=== PATIENT | male | born 1965 | race Caucasian/White ===

== ENCOUNTER → 2017-10-25 | Outpatient (CLI) | payer OTHER ==
[~2017-10-25] MED LIST: ASPI81TA28 PO
[2017-10-25 12:49] LABS: INR 2.4 (0.9-1.1)
== END | disposition home or self-care (01) ==
LOC: C.LABSPEC 09:58
PROVIDERS: ATTEND Family Medicine
DX: Z79.01 Long term (current) use of anticoagulants (principal)

== ENCOUNTER 2019-11-01 14:23 | Inpatient (IN) ==
[2019-11-01] MEDS ORDERED: ONDANSETRON INJ 2 MG/ML 2 ML VIAL IV STA (14:32)
[2019-11-01] MEDS ORDERED: SODIUM CHLORIDE 0.9% 1000ML 1,000 ML IV SCH (14:45)
[2019-11-01 14:58] LABS: Basophils # (auto) 0.03 K/uL (0-0.2); Basophils % (auto) 0.4 %; Eosinophils # (auto) 0.09 K/uL (0-0.5); Eosinophils % (auto) 1.1 %; Hematocrit (blood only) 31.2 % (42-52); Hemoglobin 10.3 g/dL (14.0-18.0); Immature Granulocytes # (auto) 0.03 K/uL (0.00-0.02); Immature Granulocytes % (auto) 0.4 %; Lymphocytes # (auto) 2.36 K/uL (1.2-3.4); Lymphocytes % (auto) 29.6 %; Mean Corpuscular Volume 87.9 fL (80-100); Mean Platelet Volume 10.9 fL (7.4-10.4); Monocytes # (auto) 0.44 K/uL (0.11-0.59); Monocytes % (auto) 5.5 %; Neutrophils # (auto) 5.02 K/uL (1.4-6.5); Platelet Count 264 K/uL (130-400); RDW Coefficient of Variation 14.5 % (11.5-14.5); RDW Standard Deviation 46.7 fL (36.4-46.3); Red Blood Count 3.55 M/uL (4.7-6.1); White Blood Count 7.97 K/uL (4.8-10.8)
[2019-11-01 15:16] LABS: Albumin Level 3.3 gm/dl (3.4-5.0); BUN Creatinine Ratio 45.9 (10-20); Calcium 8.3 mg/dl (8.5-10.1); Creatinine Clr Calc Pharmacy 90.6 ml/min; Est GFR (African American) 100.4; Est GFR (Non-African American) 86.6; Potassium 4.6 mmol/L (3.5-5.1)
[2019-11-01 15:18] LABS: Partial Thromboplastin Ratio 2.1; Prothrombin Time > 90.0 Seconds (9.0-12.0)
[2019-11-01 15:19] LABS: Albumin Globulin Ratio 0.9 (0.9-2); Bilirubin,Total 0.1 mg/dl (0.2-1); Globulin 3.5 gm/dl (2.5-4.0); Total Protein 6.8 gm/dl (6.4-8.2)
[2019-11-01] MEDS ORDERED: PANTOprazole 80 MG in DEXTROSE 5% 100 ML IV STA (15:25)
--- NOTE | 2019-11-01 15:26 | Emergency Department Note ---
ED Provider Note NAME: ARSEN [id number] MARGOTH AGE: 54 SEX: M : 1965 ARRIVES VIA: Ambulance INFORMANT: [Patient][, ] ED PROVIDER(S): [Shakir Omer MD] Chief Complaint: Abdominal pain, dark stool HPI: Patient does present from [facility]. The patient has been incarcerated for 20 years. The patient does present with concern for dark stools. These did present with associated abdominal pain beginning 2 days ago. The patient denies any recent trauma. The patient has had some associated nausea but without vomiting. Patient denies any fevers or chills. Nothing is made his symptoms any better or worse at this time. The patient does take Coumadin. He states his last level was checked 2 weeks ago and it was between 2 and 3. ROS: See HPI for pertinent positives and negatives. A total of 10 systems were reviewed and otherwise negative. Past medical history: See below Surgical history: See below Social history: See below Physical Exam: GENERAL: NAD, non-toxic. Wearing glasses. EYE EXAM: Normal conjunctiva. PERRL, no anisocoria and EOM's grossly intact w/o pain. OROPHARYNX: Moist mucus membranes. Grossly normal dentition. NECK: Supple, no nuchal rigidity, no adenopathy, non-tender. No signs of meningismus. LUNGS: Clear to auscultation. Normal chest wall mechanics. HEART: NSR, no MRG. ABDOMEN: Abdomen soft, mild mid abdominal tenderness without peritonitis, normo- active bowel sounds, no masses, no rebound or guarding. BACK: No CVA TTP. SKIN: No rashes and no bruising. UPPER EXTREMITIES: Upper extremities are grossly normal. Left upper extremity is in handcuffs. LOWER EXTREMITIES: Grossly normal, no edema. Both lower extremities in shackles. NEURO EXAM: A&O x3, cranial nerves II-XII grossly intact, normal speech, moves all 4 extremities on command w/o issue. Differential diagnoses: Appendicitis, testicular torsion, infections, diverticu litis, UTI, obstruction, mesenteric ischemia, aortic pathology, inflammatory bowel disease, renal colic, PUD, pancreatitis, biliary pathology, hernia, volvulus, constipation, as well as other pathologies. Course: Patient was seen and evaluated at the bedside. A full history and physical exam was performed. I spoke with E[facility] hospitalist service. Patient will be evaluated for further management and inpatient treatment. EKG: Indication: Tachycardia Normal sinus rhythm, rate of 97, normal intervals, normal axis, single T wave inversion in lead III. No prior EKGs for comparison. Imaging Studies: See below Cardiac monitoring: An order was placed for continuous cardiac monitoring. The monitor shows a rate of 98 with sinus rhythm. MDM: Patient was seen and evaluated at the bedside. The patient did present from present due to concern for dark stool. The patient does take Coumadin for history of DVT. Patient was given IV fluids blood work was obtained. Patient d oes have a hemoglobin of 10. No prior hemoglobins for comparison. Patient does have an elevated BUN to creatinine ratio. This could be concern for an upper GI bleed. The patient is not had any hematemesis. Protonix bolus and drip were ordered. EKG is unremarkable. INR is elevated. The patient does have an elevated BUN to creatinine. The patient was ordered Protonix and IV vitamin K. CT abdomen pelvis is fairly unremarkable. I did speak the on-call hospitalist agreed to further evaluate treat the patient. Patient was admitted to the medicine service. Critical Care: I have personally spent 54 minutes of critical care time in direct management of this patient. This includes bedside care, interpretation of diagnostic studies, and testing, discussion with consultants, patient, and family members, and other require inpatient management activities. This 54 minutes is in excess of all separately billable procedures. Impression & Plan Acute upper gastrointestinal bleeding, Abdominal pain, Supratherapeutic INR, Anemia Past Med/Surg History Medical History DVT (deep venous thrombosis) Hyperlipidemia Surgical History No pertinent past surgical history Social History Preferred Language: Tamazight Communication Ability: Effective marital status: Single Current Living Situation Comment: Incarcerated Feels Safe at Home: Yes Smoking Status: Former smoker Hx Alcohol Use: No Hx Substance Use: No Results & Data Vital Signs Vital Signs - 24 hr 11/01/19 14:26 11/01/19 14:48 Temperature 36.9 C Temperature Source Oral Pulse Rate 116 H Respiratory Rate 20 Respiratory Effort / Characteristics Non-Labored Respiratory Depth Normal Blood Pressure 120/73 Blood Pressure Mean 88 Pulse Oximetry 98 98 Oxygen Delivery Method Room Air Room Air Sepsis Recent Fever Within 48 Hours No Sepsis Action Taken by Nursing No Action Required Home Medications Current Medication List: was personally reviewed by me Laboratory Data Attestation: I reviewed the patient's lab results. Result diagrams: 11/01/19 14:38 11/01/19 14:38 Lab Results 11/01/19 11/01/19 11/01/19 Range/Units 14:38 14:38 14:38 WBC 7.97 (4.8-10.8) K/uL RBC 3.55 L (4.7-6.1) M/uL Hgb 10.3 L (14.0-18.0) g/dL Hct 31.2 L (42-52) % MCV 87.9 (80-100) fL MCH 29.0 (25-34) pg MCHC 33.0 (32-36) g/dL RDW Std Deviation 46.7 H (36.4-46.3) fL RDW Coeff of Danielle 14.5 (11.5-14.5) % Plt Count 264 (130-400) K/uL MPV 10.9 H (7.4-10.4) fL Immature Gran % (Auto) 0.4 % Neut % (Auto) 63.0 % Lymph % (Auto) 29.6 % [place] % (Auto) 5.5 % Eos % (Auto) 1.1 % Baso % (Auto) 0.4 % Immature Gran # (Auto) 0.03 H (0.00-0.02) K/uL Neut # (Auto) 5.02 (1.4-6.5) K/uL Lymph # (Auto) 2.36 (1.2-3.4) K/uL [place] # (Auto) 0.44 (0.11-0.59) K/uL Eos # (Auto) 0.09 (0-0.5) K/uL Baso # (Auto) 0.03 (0-0.2) K/uL PT > 90.0 H (9.0-12.0) Seconds INR > 9.7 H* (0.9-1.1) APTT 58.3 H* (21.0-31.0) Seconds PTT Ratio 2.1 Sodium (136-145) mmol/L Potassium (3.5-5.1) mmol/L Chloride (98-107) mmol/L Carbon Dioxide (21-32) mmol/L Anion Gap (3-11) BUN (7-18) mg/dl Creatinine (0.6-1.4) mg/dl Est Cr Clr Drug Dosing ml/min Est GFR ( Amer) Est GFR (Non-Af Amer) BUN/Creatinine Ratio (10-20) Glucose (70-99) mg/dl Calcium (8.5-10.1) mg/dl Total Bilirubin (0.2-1) mg/dl AST (15-37) U/L ALT (12-78) U/L Alkaline Phosphatase (45-117) U/L Total Protein (6.4-8.2) gm/dl Albumin (3.4-5.0) gm/dl Globulin (2.5-4.0) gm/dl Albumin/Globulin Ratio (0.9-2) Blood Type A Positive Antibody Screen NEGATIVE 11/01/19 Range/Units 14:38 WBC (4.8-10.8) K/uL RBC (4.7-6.1) M/uL Hgb (14.0-18.0) g/dL Hct (42-52) % MCV (80-100) fL MCH (25-34) pg MCHC (32-36) g/dL RDW Std Deviation (36.4-46.3) fL RDW Coeff of Danielle (11.5-14.5) % Plt Count (130-400) K/uL MPV (7.4-10.4) fL Immature Gran % (Auto) % Neut % (Auto) % Lymph % (Auto) % [place] % (Auto) % Eos % (Auto) % Baso % (Auto) % Immature Gran # (Auto) (0.00-0.02) K/uL Neut # (Auto) (1.4-6.5) K/uL Lymph # (Auto) (1.2-3.4) K/uL [place] # (Auto) (0.11-0.59) K/uL Eos # (Auto) (0-0.5) K/uL Baso # (Auto) (0-0.2) K/uL PT (9.0-12.0) Seconds INR (0.9-1.1) APTT (21.0-31.0) Seconds PTT Ratio Sodium 139 (136-145) mmol/L Potassium 4.6 (3.5-5.1) mmol/L Chloride 110 H (98-107) mmol/L Carbon Dioxide 22 (21-32) mmol/L Anion Gap 6.0 (3-11) BUN 45 H (7-18) mg/dl Creatinine 0.99 (0.6-1.4) mg/dl Est Cr Clr Drug Dosing 90.6 ml/min Est GFR ( Amer) 100.4 Est GFR (Non-Af Amer) 86.6 BUN/Creatinine Ratio 45.9 H (10-20) Glucose 102 H (70-99) mg/dl Calcium 8.3 L (8.5-10.1) mg/dl Total Bilirubin 0.1 L (0.2-1) mg/dl AST 15 (15-37) U/L ALT 33 (12-78) U/L Alkaline Phosphatase 64 (45-117) U/L Total Protein 6.8 (6.4-8.2) gm/dl Albumin 3.3 L (3.4-5.0) gm/dl Globulin 3.5 (2.5-4.0) gm/dl Albumin/Globulin Ratio 0.9 (0.9-2) Blood Type Antibody Screen Administered Medications Sodium Chloride (Nss 1000ml) 1,000 mls @ 100 mls/hr IV .Q10H BERKLEY Stop: 11/02/19 00:44 Last Admin: 11/01/19 15:00 Dose: 100 mls/hr Documented by: [id number] Ioversol (Optiray 320 100ml) 94 ml IV ONCE PRN PRN Reason: Interaction Checking Stop: 11/05/19 15:53 Last Admin: 11/01/19 15:55 Dose: 94 ml Documented by: [id number] Discontinued Medications Pantoprazole Sodium 80 mg/ (Dextrose) 120 mls @ 480 mls/hr IV NOW STA Stop: 11/01/19 15:39 Last Infusion: 11/01/19 16:22 Dose: 0 mls/hr Documented by: [id number] Admin: 11/01/19 16:03 Dose: 480 mls/hr Documented by: [id number] Phytonadione 10 mg/ Sodium (Chloride) 51 mls @ 102 mls/hr IV NOW STA Stop: 11/01/19 16:06 Last Admin: 11/01/19 16:03 Dose: 102 mls/hr Documented by: [id number] Imaging Data Radiologist's Impression: Radiology results as stated below per my review in the radiologist's interpretation: CT abd pelvis IV con only CLINICAL HISTORY: Generalized abdominal pain COMPARISON STUDY: None. TECHNIQUE: The patient was scanned in a dynamic helical fashion during intravenous and ministration of 94 cc of Optiray 320. A dose lowering technique was utilized adhering to the principles of ALARA. CT DOSE: 375.88 mGy.cm FINDINGS: Lower chest: The heart is normal in size and configuration, without pericardial effusion. The lung bases and pleural spaces are clear. Liver: There is a to small to characterize 7 mm right lobe hepatic hypodensity. There is no ductal dilatation. The hepatic veins and portal veins appear patent. Gallbladder: Unremarkable. Spleen: Normal in size and attenuation. Pancreas: Unremarkable. Adrenal glands: Unremarkable. Kidneys: There are small renal cortical scars/lobulations. There is an 8 mm lower pole left renal hypodensity consistent with a cyst. There is no hydronephrosis. Bowel: There are no transition zones indicate bowel obstruction. There is no evidence of acute appendicitis. There is colonic diverticulosis. There is no evidence of acute diverticulitis. Peritoneum: There is no intraperitoneal free air or abdominal ascites. There are small fat-containing left inguinal hernia. There is a tiny fat-containing umbilical hernia Vasculature: The abdominal aorta is normal in course and caliber. Adenopathy: None. Pelvic viscera: The bladder, and pelvic viscera are unremarkable. Skeletal structures: No destructive osseous lesions are seen. IMPRESSION: 1. No acute intra-abdominal or pelvic findings 2. No evidence of bowel obstruction. No evidence of free air 3. Diverticulosis. No evidence of acute diverticulitis 4. No evidence of acute appendicitis ACT 112: Negative or not required by law. Electronically signed by: Josiah Simons M.D. 11/01/2019 4:05 PM Dictated: 11/01/19 1557 Transcribed: 11/01/191556 Blood Pressure Blood Pressure Findings: Normal blood pressure Discharge Plan Visit Data Chief Complaint: Abdominal Pain Stated Complaint: abd pain ED Provider: Shakir Omer Discharge Problem: Acute upper gastrointestinal bleeding, Abdominal pain, Supratherapeutic INR, Anemia Forms Stand Alone Forms: My [facility] Prescriptions Prescriptions: No Action atorvastatin 80 mg Tablet 80 mg PO HS RF: 0 clopidogrel [Plavix] 75 mg Tablet 75 mg PO DAILY RF: 0 warfarin 4 mg Tablet 4 mg PO HS RF: 0 warfarin 5 mg Tablet 5 mg PO HS RF: 0 fluticasone propionate [Flonase Allergy Relief] 50 mcg/actuation Ord,Suspension 2 spray INTRANASAL DAILY RF: 0 Discharge Problem: Abdominal pain Qualifiers: Abdominal location: periumbilical Qualified Code(s): R10.33 - Periumbilical pain Anemia Qualifiers: Anemia type: unspecified type Qualified Code(s): D64.9 - Anemia, unspecified
[2019-11-01 15:31] LABS: INR > 9.7 (0.9-1.1); Partial Thromboplastin Time 58.3 Seconds (21.0-31.0)
[2019-11-01] MEDS ORDERED: PHYTONADIONE 10 MG in SODIUM CHLORIDE 0.9% 50 ML IV STA (15:37)
[2019-11-01] MEDS ORDERED: IOVERSOL 100ml IV PRN (15:54)
--- NOTE | 2019-11-01 16:06 | CT Scan Report ---
CT abd pelvis IV con only CLINICAL HISTORY: Generalized abdominal pain COMPARISON STUDY: None. TECHNIQUE: The patient was scanned in a dynamic helical fashion during intravenous and ministration o f 94 cc of Optiray 320. A dose lowering technique was utilized adhering to the principles of ALARA. CT DOSE: 375.88 mGy.cm FINDINGS: Lower chest: The heart is normal in size and configuration, without pericardial effusion. The lung ba ses and pleural spaces are clear. Liver: There is a to small to characterize 7 mm right lobe hepatic hypodensity. There is no ductal di latation. The hepatic veins and portal veins appear patent. Gallbladder: Unremarkable. Spleen: Normal in size and attenuation. Pancreas: Unremarkable. Adrenal glands: Unremarkable. Kidneys: There are small renal cortical scars/lobulations. There is an 8 mm lower pole left renal hyp odensity consistent with a cyst. There is no hydronephrosis. Bowel: There are no transition zones indicate bowel obstruction. There is no evidence of acute append icitis. There is colonic diverticulosis. There is no evidence of acute diverticulitis. Peritoneum: There is no intraperitoneal free air or abdominal ascites. There are small fat-containing left inguinal hernia. There is a tiny fat-containing umbilical hernia Vasculature: The abdominal aorta is normal in course and caliber. Adenopathy: None. Pelvic viscera: The bladder, and pelvic viscera are unremarkable. Skeletal structures: No destructive osseous lesions are seen. IMPRESSION: 1. No acute intra-abdominal or pelvic findings 2. No evidence of bowel obstruction. No evidence of free air 3. Diverticulosis. No evidence of acute diverticulitis 4. No evidence of acute appendicitis ACT 112: Negative or not required by law. Electronically signed by: Josiah Simons M.D. 11/01/2019 4:05 PM
[2019-11-01] MEDS: PANTOprazole 40 MG in DEXTROSE 5% 100 ML IV SCH ×2 (16:36→20:28)
--- NOTE | 2019-11-01 17:09 | Gastrointestinal Consultation ---
Date of Consultation November 01, 2019 Assessment & Plan (1) Supratherapeutic INR: 54 year old male with admitted through the ED w/ melanotic stools x 3 days w report of 6-8 dark, tarry stools daily. He was found to be anemia, HGB 10.3, BUN elevation at 45 w/ INR > 9 NPO Hold coumadin, plavix IV PPI bolus and drip Vit K was given prior to GI consult EGD 11/02/19 Trend HGB Monitor and document all GI output Transfuse PRN HGB < 8 per primary team No NSAIDs Thank you for allowing us to participate in the care of this patient. Please call with any acute changes, questions or concerns. Please see addendum below with additional recommendation from my supervising physician. Present on Admission?: Yes (2) Anemia: Supervising Physician Co-Signing Physician Notes Attending attestation I have seen, examined this patient, and agree with the findings and above by our mid-level provider ANDRES Fairbanks, with the following additions: Patient with melena without hemodynamic compromise. No melena for several hrs, no hematemesis, no signs of liver disease. NPO IV PPI gtt EGD in the am Call if any change in hemodynamic changes. History of Present Illness Reason for Consultation: dark stools Requesting Physician: Kimberli Attending Physician: Kimberli History of Present Illness 54 year old male with history of DVT on coumadin and plavix presenting through the ED w/ dark stools - GI asked to evaluate for melena. Pt was seen and evaluated chart reviewed. Notes he was in his typical state of health until about there days ago. At that time noted urgency for stools moving bowels up to 6-7 x times daily and all stools noted to be dark, tarry. Denies any BRBPR. Does have some mild epigastric pain/burning but denies any coffee ground emesis or hematemesis. Denies lightheadedness, dizziness, CP, SOB AC: coumadin, plavix NSAIDs none Allergies Allergy/AdvReac Type Severity Reaction Status Date / Time No Known Allergies Allergy Unverified 11/01/19 15:32 Home Medications Home Medications Medication Instructions Recorded Confirmed Type atorvastatin 80 mg PO HS 11/01/19 11/01/19 History clopidogrel [Plavix] 75 mg PO DAILY 11/01/19 11/01/19 History fluticasone propionate [Flonase 2 spray INTRANASAL DAILY 11/01/19 11/01/19 History Allergy Relief] warfarin 4 mg PO HS 11/01/19 11/01/19 History warfarin 5 mg PO HS 11/01/19 11/01/19 History Patient History Medical History DVT (deep venous thrombosis) PAD (peripheral artery disease) 07/2015: Acute thromboembolism of left distal SFA and popliteal artery, requiring thromboembolectomy. Postop course complicated by compartment syndrome, requiring fasciotomy. 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 Other Information That Helps Us Care for You: No Feels Safe at Home: Yes Smoking Status: Former smoker Do You Dip or Chew Tobacco: No ; Smoking End Date: February 2019 ; Tobacco Cessation Education Requested by Patient: No Hx Alcohol Use: Yes (Quit 20 years ago.) Hx Substance Use: No Review of Systems Constitutional: no fever, no chills and no fatigue Respiratory: no cough and no dyspnea Cardiovascular: no chest pain Gastrointestinal: + cramping, + diarrhea/loose stools and + melena; no nausea, no coffee ground emesis, no hematemesis and no blood in stools Physical Exam Constitutional: well nourished; no acute distress Neck: trachea midline Respiratory: normal respiratory effort Cardiovascular: Rate/Rhythm: regular rate and regular rhythm Gastrointestinal (Abdomen): Inspection/Auscultation: normal bowel sounds Percussion/Palpation: + abdomen tender (epigastric) and abdomen soft Skin: no rashes, warm and dry Results & Data ([facility]) Vital Signs (Past 12 Hours) Vital Signs Temp Pulse Pulse Resp BP BP Pulse Ox 11/01/19 16:39 99 H 16 126/72 99 11/01/19 14:48 98 11/01/19 14:26 36.9 C 116 H 20 120/73 98 Laboratory Results 11/01/19 11/01/19 11/01/19 Range/Units 14:38 14:38 14:38 WBC 7.97 (4.8-10.8) K/uL RBC 3.55 L (4.7-6.1) M/uL Hgb 10.3 L (14.0-18.0) g/dL Hct 31.2 L (42-52) % MCV 87.9 (80-100) fL MCH 29.0 (25-34) pg MCHC 33.0 (32-36) g/dL RDW Std Deviation 46.7 H (36.4-46.3) fL RDW Coeff of Danielle 14.5 (11.5-14.5) % Plt Count 264 (130-400) K/uL MPV 10.9 H (7.4-10.4) fL Immature Gran % (Auto) 0.4 % Neut % (Auto) 63.0 % Lymph % (Auto) 29.6 % [place] % (Auto) 5.5 % Eos % (Auto) 1.1 % Baso % (Auto) 0.4 % Immature Gran # (Auto) 0.03 H (0.00-0.02) K/uL Neut # (Auto) 5.02 (1.4-6.5) K/uL Lymph # (Auto) 2.36 (1.2-3.4) K/uL [place] # (Auto) 0.44 (0.11-0.59) K/uL Eos # (Auto) 0.09 (0-0.5) K/uL Baso # (Auto) 0.03 (0-0.2) K/uL PT > 90.0 H (9.0-12.0) Seconds INR > 9.7 H* (0.9-1.1) APTT 58.3 H* (21.0-31.0) Seconds PTT Ratio 2.1 Sodium 139 (136-145) mmol/L Potassium 4.6 (3.5-5.1) mmol/L Chloride 110 H (98-107) mmol/L Carbon Dioxide 22 (21-32) mmol/L Anion Gap 6.0 (3-11) BUN 45 H (7-18) mg/dl Creatinine 0.99 (0.6-1.4) mg/dl Est Cr Clr Drug Dosing 90.6 ml/min Est GFR ( Amer) 100.4 Est GFR (Non-Af Amer) 86.6 BUN/Creatinine Ratio 45.9 H (10-20) Glucose 102 H (70-99) mg/dl Calcium 8.3 L (8.5-10.1) mg/dl Total Bilirubin 0.1 L (0.2-1) mg/dl AST 15 (15-37) U/L ALT 33 (12-78) U/L Alkaline Phosphatase 64 (45-117) U/L Total Protein 6.8 (6.4-8.2) gm/dl Albumin 3.3 L (3.4-5.0) gm/dl Globulin 3.5 (2.5-4.0) gm/dl Albumin/Globulin Ratio 0.9 (0.9-2) Blood Type Antibody Screen 11/01/19 Range/Units 14:38 WBC (4.8-10.8) K/uL RBC (4.7-6.1) M/uL Hgb (14.0-18.0) g/dL Hct (42-52) % MCV (80-100) fL MCH (25-34) pg MCHC (32-36) g/dL RDW Std Deviation (36.4-46.3) fL RDW Coeff of Danielle (11.5-14.5) % Plt Count (130-400) K/uL MPV (7.4-10.4) fL Immature Gran % (Auto) % Neut % (Auto) % Lymph % (Auto) % [place] % (Auto) % Eos % (Auto) % Baso % (Auto) % Immature Gran # (Auto) (0.00-0.02) K/uL Neut # (Auto) (1.4-6.5) K/uL Lymph # (Auto) (1.2-3.4) K/uL [place] # (Auto) (0.11-0.59) K/uL Eos # (Auto) (0-0.5) K/uL Baso # (Auto) (0-0.2) K/uL PT (9.0-12.0) Seconds INR (0.9-1.1) APTT (21.0-31.0) Seconds PTT Ratio Sodium (136-145) mmol/L Potassium (3.5-5.1) mmol/L Chloride (98-107) mmol/L Carbon Dioxide (21-32) mmol/L Anion Gap (3-11) BUN (7-18) mg/dl Creatinine (0.6-1.4) mg/dl Est Cr Clr Drug Dosing ml/min Est GFR ( Amer) Est GFR (Non-Af Amer) BUN/Creatinine Ratio (10-20) Glucose (70-99) mg/dl Calcium (8.5-10.1) mg/dl Total Bilirubin (0.2-1) mg/dl AST (15-37) U/L ALT (12-78) U/L Alkaline Phosphatase (45-117) U/L Total Protein (6.4-8.2) gm/dl Albumin (3.4-5.0) gm/dl Globulin (2.5-4.0) gm/dl Albumin/Globulin Ratio (0.9-2) Blood Type A Positive Antibody Screen NEGATIVE (1) Anemia Anemia type: unspecified type Qualified Code(s): D64.9 - Anemia, unspecified
--- NOTE | 2019-11-01 17:27 | History & Physical Report ---
Date of Service November 01, 2019 Assessment & Plan (1) Acute upper gastrointestinal bleeding: (2) Supratherapeutic INR: -admit to tele -patient presenting from [facility] for evaluation of near syncope, abdominal pain, and melena -in the ED, rectal exam shows heme positive stool, hgb 10.3, INR > 9.7; vitals stable -Per patient, no prior history of EGD or colonoscopy -Trend H&H, transfuse PRN for Hgb < 8.0 -Received vitamin K 10 mg for supratherapeutic INR, recheck INR this evening -S/p Protonix bolus and drip in ED, will continue -Clear liquids, n.p.o. after midnight -Hold Coumadin and Plavix -GI consult, case discussed with ANDRES Sargent (3) PAD (peripheral artery disease): -07/2015: Acute thromboembolism of left distal SFA and popliteal artery, requiring thromboembolectomy. Postop course complicated by compartment synd estefanía, requiring fasciotomy; patient was placed on Coumadin and Plavix at that time -Per physician at [facility] at [facility], venous Dopplers on 08/27/2019 negative, arterial Doppler showing high-grade left distal femoral artery stenosis and moderate superficial femoral artery stenosis -Holding Coumadin and Plavix as above (4) DVT prophylaxis: -SCDs when INR <2.0 History of Present Illness Chief Complaint: Abdominal pain, near syncope Primary Care Provider: [facility] 54-year-old male who presents the ED for evaluation of abdominal pain and near syncope. Patient reports his symptoms began 3 days ago. Patient reports persistent right lower quadrant abdominal pain. He has been having dark tarry stools for the past 3 days as well. He has had nausea and poor appetite but denies vomiting. He reports lightheadedness and diaphoresis with standing. No syncopal event. Patient denies chest pain shortness of breath. No fevers or chills. He denies any urinary symptoms. Case was discussed with physician at [facility]irm[facility] at [facility]. He reports that about 1 month ago, patient had been noncompliant with Coumadin however restarted about 2 weeks ago. INR on 10/18 was 2.2. Patient had arterial ultrasound on 08/27/2019 that showed moderate to high- grade stenosis. Also had venous Doppler that was negative. In the ED, rectal exam revealed heme positive stool. Hgb 10.3, INR > 9.7, BUN 45, creatinine 0.9. Patient has remained hemodynamically stable. He received IVF, IV vitamin K 10 mg, IV Protonix bolus followed by drip. Allergies Allergy/AdvReac Type Severity Reaction Status Date / Time No Known Allergies Allergy Unverified 11/01/19 15:32 Home Medications Home Medications Medication Instructions Recorded Confirmed Type atorvastatin 80 mg PO HS 11/01/19 11/01/19 History clopidogrel [Plavix] 75 mg PO DAILY 11/01/19 11/01/19 History fluticasone propionate [Flonase 2 spray INTRANASAL DAILY 11/01/19 11/01/19 History Allergy Relief] warfarin 4 mg PO HS 11/01/19 11/01/19 History warfarin 5 mg PO HS 11/01/19 11/01/19 History Past Med/Surg History Medical History DVT (deep venous thrombosis) PAD (peripheral artery disease) 07/2015: Acute thromboembolism of left distal SFA and popliteal artery, requiring thromboembolectomy. Postop course complicated by compartment syndrome, requiring fasciotomy. Surgical History History of fasciotomy Family History Mother Heart disease Father Heart disease Social History Preferred Language: Andorran Communication Ability: Effective Works Manager Required: No Beliefs That Will Affect Care: None marital status: Single Current Living Situation: Other Current Living Situation Comment[facility] Other Information That Helps Us Care for You: No Feels Safe at Home: Yes Smoking Status: Former smoker Do You Dip or Chew Tobacco: No ; Smoking End Date: February 2019 ; Tobacco Cessation Education Requested by Patient: No Hx Alcohol Use: Yes (Quit 20 years ago.) Hx Substance Use: No Review of Systems Review of Systems: ROS per HPI, all other systems reviewed and negative Physical Exam Constitutional: WD/WN, vitals as above Eyes: PERRL, conjunctivae normal, anicteric sclerae ENMT: external ear and nose normal, oropharynx normal Respiratory: normal respiratory effort, lungs clear to auscultation Cardiovascular: Rate/Rhythm: regular rate and regular rhythm Vessels: normal peripheral pulses Extremities: no edema Gastrointestinal (Abdomen): Inspection/Auscultation: normal bowel sounds Percussion/Palpation: + abdomen tender (Mild, RLQ) and abdomen soft; no guarding, abdomen not rigid and no hepatosplenomegaly Musculoskeletal: no cyanosis or clubbing, extremities motor strength 5/5 Skin: no rashes, warm and dry Neurologic: PERRL, EOMI, accommodation nl, no face palsy, no dysarthria Psychiatric: A+Ox3, euthymic affect Results & Data Vital Signs (Past 12 Hours) Vital Signs Temp Pulse Pulse Resp BP BP Pulse Ox 11/01/19 16:39 99 H 16 126/72 99 11/01/19 14:48 98 11/01/19 14:26 36.9 C 116 H 20 120/73 98 Laboratory Results Short CBC 11/01/19 Range/Units 14:38 WBC 7.97 (4.8-10.8) K/uL Hgb 10.3 L (14.0-18.0) g/dL Hct 31.2 L (42-52) % Plt Count 264 (130-400) K/uL BMP 11/01/19 14:38 Sodium 139 Potassium 4.6 Chloride 110 H Carbon Dioxide 22 BUN 45 H Creatinine 0.99 Glucose 102 H Calcium 8.3 L Liver Function 11/01/19 Range/Units 14:38 Total Bilirubin 0.1 L (0.2-1) mg/dl AST 15 (15-37) U/L ALT 33 (12-78) U/L Alkaline Phosphatase 64 (45-117) U/L Albumin 3.3 L (3.4-5.0) gm/dl Diagnostic Findings CT ABD/PELVIS iMPRESSION: 1. No acute intra-abdominal or pelvic findings 2. No evidence of bowel obstruction. No evidence of free air 3. Diverticulosis. No evidence of acute diverticulitis 4. No evidence of acute appendicitis Code Status & VTE Plan Code Status Patient is a full code as per my discussion with him. VTE Prophylaxis Plan VTE Prophylaxis will be ordered: Yes Supervising Physician Co-Signing Physician Notes Care coordinated with ANDRES Gaspar Agree with above note. Patient seen and examined. Please refer to her notes for full details. Vital signs reviewed. Physical exam: General exam: Alert and oriented. Not in acute distress. CVS: S1 and S2 heard, regular rate and rhythm, no murmurs. RS: Clear to auscultation, no wheezing or crackles. ABD: Soft, bowel sounds present, mild RLQ tenderness, no distention. DERRICK WORKER WELL SERVICE: Nonfocal. EXT: No edema, no erythema. Labs: Reviewed. Assessment and plan: 54M presents with abdominal pain and black stools for about 3 day duration. On coumadin and plavix. Elevated INR. GI bleed hb 10.3 INR> 9 received iv vtamin k hemepositive sttol blood consent obtained h and q 6hrs on ppi drip Gi notified hemodynamics stable to transfuse if hb <8.0 follow pt/inr Close monitor in tele hx of PVD hx of acute thrombosis of left SFA and popliteal artery requiring thromboembolectomy requirng fasciotomy for compartment syndrome since then on coumadin and plavix which are held now. To restart when stable. PAd on recent arterial study at [facility]. Other diagnosis and plan of care as per . Alexander ha MD.
[2019-11-01] MEDS ORDERED: ACETAMINOPHEN 325 MG TAB PO PRN (19:13)
[2019-11-01] MEDS: SODIUM CHLORIDE 0.9% 1000ML 1,000 ML IV SCH (19:52)
[2019-11-01 20:02] LABS: Hematocrit (blood only) 28.6 % (42-52); Hemoglobin 9.2 g/dL (14.0-18.0)
[2019-11-01 20:09] LABS: INR 2.2 (0.9-1.1); Prothrombin Time 22.7 Seconds (9.0-12.0)
[2019-11-02] MEDS: PANTOprazole 40 MG in DEXTROSE 5% 100 ML IV SCH ×3 (01:30→17:30)
[2019-11-02] MEDS: SODIUM CHLORIDE 0.9% 1000ML 1,000 ML IV SCH (05:11)
--- NOTE | 2019-11-02 06:16 | Electrocardiogram Report ---
Test Reason : Blood Pressure : / mmHG Vent. Rate : 097 BPM Atrial Rate : 097 BPM P-R Int : 118 ms QRS Dur : 096 ms QT Int : 334 ms P-R-T Axes : 007 -19 004 degrees QTc Int : 424 ms Poor data quality, interpretation may be adversely affected Normal sinus rhythm Normal ECG No previous ECGs available Confirmed by Renan Woody ([id number]) on 11/02/2019 6:15:42 AM Referred By: [facility] Confirmed By:Renan Woody
[2019-11-02 06:34] LABS: Hematocrit (blood only) 23.6 % (42-52); Hemoglobin 7.9 g/dL (14.0-18.0); Mean Corpuscular Hemoglobin 29.4 pg (25-34); Mean Corpuscular Hgb Conc 33.5 g/dL (32-36); Mean Corpuscular Volume 87.7 fL (80-100); Mean Platelet Volume 10.9 fL (7.4-10.4); Platelet Count 224 K/uL (130-400); RDW Coefficient of Variation 14.8 % (11.5-14.5); RDW Standard Deviation 47.8 fL (36.4-46.3); Red Blood Count 2.69 M/uL (4.7-6.1); White Blood Count 8.39 K/uL (4.8-10.8)
[2019-11-02 07:09] LABS: BUN Creatinine Ratio 35.1 (10-20); Calcium 7.8 mg/dl (8.5-10.1); Creatinine Clr Calc Pharmacy 110.7 ml/min; Est GFR (African American) 117.6; Est GFR (Non-African American) 101.5
--- NOTE | 2019-11-02 08:12 | Gastroenterology Progress Note ---
Date of Service November 02, 2019 Assessment & Plan (1) Supratherapeutic INR: 54 year old male with admitted through the ED w/ melanotic stools x 3 days w report of 6-8 dark, tarry stools daily. He was found to be anemia, HGB 10.3, BUN elevation at 45 w/ INR > 9 This AM, HGB drop to 7.9, BUN 29, INR 2.2 NPO EGD this AM Repeat INR this AM IV PPI bolus and drip Trend HGB Monitor and document all GI output Transfuse PRN HGB < 8 per primary team No NSAIDs Thank you for allowing us to participate in the care of this patient. Please call with any acute changes, questions or concerns. Please see addendum below with additional recommendation from my supervising physician. (2) Anemia: Admission and Anticipated Discharge Date Admission Date: November 01, 2019 Supervising Physician Co-Signing Physician Notes Attending attestation I have seen, examined this patient, and agree with the findings and above by our mid-level provider ANDRES Fairbanks, with the following additions: -No signs of bleeding, INR reveresed, the continued need for anticoagulation will need to be determined Plan for EGD today Subjective Pt was seen and evaluated No acute concerns this AM No longer has any abd pain, cramping No BM since ED Denies lightheadedness, dizziness, CP, SOB. Review of Systems Constitutional: no fever and no chills Respiratory: no cough and no dyspnea Cardiovascular: no chest pain and no dyspnea Gastrointestinal: no abdominal pain, no coffee ground emesis, no hematemesis, no blood in stools and no melena Physical Exam Constitutional: well nourished; no acute distress Neck: trachea midline Respiratory: normal respiratory effort Cardiovascular: Rate/Rhythm: regular rate and regular rhythm Gastrointestinal (Abdomen): Percussion/Palpation: abdomen soft; abdomen nont aravind Skin: no rashes, warm and dry Results & Data ([facility]) Vital Signs (Past 12 Hours) Vital Signs Temp Pulse Pulse Resp BP Pulse Ox 11/02/19 07:33 36.6 C 91 H 16 110/72 98 11/02/19 03:34 36.6 C 84 17 104/69 99 11/02/19 00:30 86 11/01/19 23:22 36.5 C 89 18 116/77 100 (1) Anemia Anemia type: unspecified type Qualified Code(s): D64.9 - Anemia, unspecified
[2019-11-02] MEDS ORDERED: SODIUM CHLORIDE 0.9% 250 ML IV PRN (08:43)
[2019-11-02 08:46] LABS: INR 1.3 (0.9-1.1); Prothrombin Time 13.5 Seconds (9.0-12.0)
--- NOTE | 2019-11-02 10:35 | Anesthesiology Consultation ---
Date of Service November 02, 2019 Assessment & Plan Chart Review Chart Review: Acceptable Risk for Surgery Consults Requested none ASA ASA2E Proposed Anesthesia Anesthesia Type: MAC Risk / Benefits Reviewed With: PT / POA / Parent / Guardian, Accepts Plan and Informed Consent Obtained History Surgery Operation Date: 11/02/19 16:50 Proposed Procedures p Esophagogastroduodenoscopy Dr Garfield Merrill Height/Weight Height: 5 ft 7 in Weight: 86.4 kg Allergies Allergy/AdvReac Type Severity Reaction Status Date / Time No Known Allergies Allergy Unverified 11/02/19 10:29 Medications Home Medications Medication Instructions Recorded Confirmed Last Taken ASPIRIN (ASPIRIN EC) 81 mg PO DAILY #0 08/08/15 Unknown atorvastatin 80 mg PO HS 11/01/19 11/01/19 Unknown clopidogrel [Plavix] 75 mg PO DAILY 11/01/19 11/01/19 Unknown fluticasone propionate [Flonase 2 spray INTRANASAL DAILY 11/01/19 11/01/19 Unknown Allergy Relief] warfarin 4 mg PO HS 11/01/19 11/01/19 Unknown warfarin 5 mg PO HS 11/01/19 11/01/19 Unknown Active Medications Generic Name Dose Route Start Last Admin Trade Name Freq PRN Reason Stop Dose Admin Pantoprazole Sodium 40 mg/ 100 mls @ 20 mls/hr 11/01/19 15:40 11/02/19 06:18 Dextrose IV 12/01/19 15:39 8 mg/hr Q5H BERKLEY 20 mls/hr Administration 8 MG/HR Sodium Chloride 1,000 mls @ 100 mls/hr 11/01/19 19:13 11/02/19 05:11 Nss 1000ml IV 12/01/19 19:12 100 mls/hr .Q10H BERKLEY Administration NPO Date Last Intake of Fluids: 11/02/19 Time Last Intake of Fluids: 00:00 Date Last Intake of Solids: 11/02/19 Time Last Intake of Solids: 00:00 Past Medical History Medical History DVT (deep venous thrombosis) PAD (peripheral artery disease) 07/2015: Acute thromboembolism of left distal SFA and popliteal artery, requiring thromboembolectomy. Postop course complicated by compartment syndrome, requiring fasciotomy. d/w pt. no hematemesis/any [id number]. Exercise / Class Metabolic Activity II 4-5 Yardwork/Stairs/Walk up hill Past Family History Family History Mother Heart disease Father Heart disease Past Surgical History Surgical History History of fasciotomy Past Anesthesia History No Hx of Anesthesia Complications and No Family Hx of Anesthesia Complications History of PONV No Hx of PONV and No Hx of Motion Sickness Social History Smoking Status: Former smoker Do You Dip or Chew Tobacco: No Smoking End Date: February 2019 Hx Alcohol Use: Yes (Quit 20 years ago.) Alcohol Intake Frequency Comment: Quit 20 years ago. Hx Substance Use: No Physical Exam Vital Signs Last Vital Signs Temp 36.5 C 11/02/19 10:05 Pulse 88 11/02/19 10:05 Resp 18 11/02/19 10:05 BP 108/67 11/02/19 10:05 Pulse Ox 98 11/02/19 10:05 Constitutional no blood noted around mouth or on teeth ENMT Mouth: no TMJ abnormality Thyromental Distance: > or= 3.5 Finger Breadths Mallampati Class: II Neck normal visual inspection and trachea midline; neck extension not limited Respiratory normal respiratory effort Auscultation: lungs clear to auscultation bilaterally Cardiovascular Rate/Rhythm: regular rate and regular rhythm Heart Sounds: no murmur Musculoskeletal Spine: normal cervical ROM Extremities: full ROM of extremities Neurologic moves all extremities Psychiatric Orientation: alert and oriented x 3 Testing Laboratory Results 11/02/19 05:51 11/02/19 05:51 PT 13.5 Seconds (9.0-12.0) H 11/02/19 08:25 INR 1.3 (0.9-1.1) H 11/02/19 08:25 APTT 58.3 Seconds (21.0-31.0) H* 11/01/19 14:38 Blood Type A Positive 11/01/19 14:38 Antibody Screen NEGATIVE 11/01/19 14:38 Electrocardiogram Date: 11/02/19 Findings: + NSR @ (97 Bpm) Stress Test Date: 08/09/19 Type: exercise Findings: + WNL and + achieved max HR
[2019-11-02] MEDS ORDERED: LIDOCAINE HCL 2% 2 ML VIAL/AMP(20MG/ML) INFIL ONE (10:53)
[2019-11-02] MEDS ORDERED: PROPOFOL IV EMULSION 10 MG/ML 20 ML VIAL IV ONE (10:53)
--- NOTE | 2019-11-02 11:15 | Anesthesiology Progress Note ---
Date of Service November 02, 2019 Anesthesia Post Procedure Vital Signs Vital Signs: Temp Pulse Pulse Resp BP BP Pulse Ox 11/02/19 11:09 36.8 C 87 16 98/75 L 99 11/02/19 10:35 36.4 C L 89 18 120/79 99 11/02/19 10:30 36.4 C L 89 16 120/79 99 11/02/19 10:05 36.5 C 88 18 108/67 98 11/02/19 09:50 36.5 C 88 18 119/77 98 11/02/19 09:49 36.5 C 89 18 119/77 99 11/02/19 09:34 36.5 C 89 18 123/81 99 11/02/19 08:40 84 11/02/19 07:33 36.6 C 91 H 16 110/72 98 11/02/19 03:34 36.6 C 84 17 104/69 99 11/02/19 00:30 86 11/01/19 23:22 36.5 C 89 18 116/77 100 11/01/19 19:00 95 H 11/01/19 18:50 36.3 C L 97 H 20 123/80 100 11/01/19 18:32 36.6 C 99 H 18 103/67 99 11/01/19 18:20 96 H 16 103/87 98 11/01/19 16:39 99 H 16 126/72 99 11/01/19 14:48 98 11/01/19 14:26 36.9 C 116 H 20 120/73 98 Transfer of Care Handoff Completed per policy Notes Mental Status: alert / awake / arousable and participated in evaluation Nausea / Vomiting: adequately controlled Pain: adequately controlled Airway Patency, RR, SpO2: stable & adequate BP & HR: stable & adequate Hydration State: stable & adequate Anesthetic Complications: no major complications apparent and Pt Satisfied with anesthetic care
--- NOTE | 2019-11-02 11:22 | GI REPORT ---
Patient Name: Nixon Valencia Procedure Date: 11/02/2019 10:55 AM Date of : 1965 Admit Type: Inpatient Age: 54 Gender: Male Attending MD: Madi Merrill MD Procedure: Upper GI endoscopy Providers: Madi Merrill MD Referring MD: Kelly Griffin Indications: Melena Medicines: Monitored Anesthesia Care Complications: No immediate complications. Estimated blood loss: None. Estimated Blood Loss: Estimated blood loss: none. Procedure: Pre-Anesthesia Assessment: - Pre-Anesthesia Assessment: - Prior to the procedure, a History and Physical was performed, and patient medications, allergies and sensitivities were reviewed. The patient's tolerance of previous anesthesia was reviewed. Please see [employer]ible (formerly gradsavers) for complete details. - The risks and benefits of the procedure and the sedation options and risks were discussed with the patient. All questions were answered and informed consent was obtained. - Patient identification and proposed procedure were verified prior to the procedure by the physician and the nurse. The procedure was verified in the pre-procedure area in the procedure room. After obtaining informed consent, the endoscope was passed carefully and meticuously under direct vision and only advanced when the lumen was clearly identified, C02 insuflation was utilized throughout the entirity of the procedure. Throughout the procedure, the patient's blood pressure, pulse, and oxygen saturations were monitored continuously. After obtaining informed consent, the endoscope was passed under direct vision. Throughout the procedure, the patient's blood pressure, pulse, and oxygen saturations were monitored continuously. The Endoscope was introduced through the mouth, and advanced to the second part of duodenum. The upper GI endoscopy was accomplished without difficulty. The patient tolerated the procedure well. Findings: LA Grade A (one or more mucosal breaks less than 5 mm, not extending between tops of 2 mucosal folds) esophagitis with no bleeding was found. Localized moderate inflammation characterized by erosions was found in the gastric antrum. Biopsies were taken with a cold forceps for Helicobacter pylori testing. One non-bleeding superficial duodenal ulcer with a clean ulcer base (Kevin Class III) was found in the duodenal bulb. The lesion was 4 mm in largest dimension. Localized moderate inflammation characterized by congestion (edema) and erythema was found in the duodenal bulb. Impression: - LA Grade A reflux esophagitis. - Gastritis. Biopsied. - One non-bleeding duodenal ulcer with a clean ulcer base (Kevin Class III). - Duodenitis. Recommendation: - Await pathology results. - Return patient to hospital bose for ongoing care. - Use Prilosec (omeprazole) 40 mg PO BID for 2 months. - Clarify need for anticoagulation. Would hold coumadin for at least one additional day and if only had one DVT consider not re-initating. - Clear liquid diet and advance as tolerated. - Monitor for signs of bleeding Madi Merrill MD 11/02/2019 11:21:57 AM This report has been signed electronically. Note Initiated On: 11/02/2019 10:55 AM Number of Addenda: 0 I attest to the content of the Intraoperative Record and orders documented therein, exceptions below {[id number]}
--- NOTE | 2019-11-02 12:13 | Hospitalist Progress Note ---
Date of Service November 02, 2019 Assessment & Plan (1) Acute upper gastrointestinal bleeding: Patient admitted with complaints of multiple episodes of melanotic stool for last 2-3 days Patient found to be anemic, with hemoglobin drop noted from 107.9 No active GI bleed noted since admission, patient did not had any bowel movements Appreciate input from gastroenterology Status post EGD today:Shows grade a reflux esophagitis, gastritis, duodenitis 1 nonbleeding duodenal ulcer with a clean ulcer base, Commenced to use omeprazole 40 mg p.o. twice daily for 2 months Continue to hold anticoagulation Clear liquid diet and advance as tolerated Acute blood loss anemia: Due to above, Ordered for 1 unit of PRBC transfusion No evidence of active GI bleed since admission repeat H&H in a.m. (2) Supratherapeutic INR: On admission INR> 9.7 Presented with melanotic stool Patient was given 10 mg of vitamin K INR 1.3 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 Postop course complicated by compartment syndrome, requiring fasciotomy, Patient was started on Coumadin and Plavix Due to high risk of bleeding, evidence of jejunitis, general ulcer, esophagitis and EGD Prior history of DVT was proximately 4.5 years ago I think it is prudent to discontinue Coumadin for now Lower extremity Doppler on 08/27/2019 was negative as per physician at [facility] Ordered for repeat lower extremity Doppler In any future episode of DVT, IVC filter can be considered (3) PAD (peripheral artery disease): Arterial Doppler in the past showed a high-grade left distal femoral artery stenosis of moderate superficial femoral artery stenosis Plavix has been kept on hold for acute GI bleed/acute blood loss anemia/evidence of duodenal ulcer/gastritis esophagitis and EGD We will order lower extremity arterial Doppler May consider vascular surgery consult if significant arterial stenosis noted CODE STATUS: Full code Disposition: pt will return back to [facility] once medically stable Admission and Anticipated Discharge Date Admission Date: November 01, 2019 Subjective Patient was seen prior to EGD procedure, No further bowel movements overnight, denies of any abdominal pain, no nausea vomiting Vitals been stable No dizzy spell palpitation Review of Systems Review of Systems: All systems reviewed & are unremarkable except as noted in HPI & below Respiratory: no cough, no dyspnea and no dyspnea on exertion Cardiovascular: no dyspnea, no dyspnea at rest, no palpitations and no lightheadedness Gastrointestinal: no abdominal pain, no nausea, no vomiting, no coffee ground emesis, no blood in stools and no melena Physical Exam Constitutional: WD/WN, vitals as above no acute distress Eyes: PERRL, conjunctivae normal, anicteric sclerae ENMT: external ear and nose normal, oropharynx normal Neck: trachea midline, no thyromegaly Respiratory: normal respiratory effort, lungs clear to auscultation Cardiovascular: RRR, no murmur, no edema Gastrointestinal (Abdomen): normal bowel sounds, soft, nontender, no hepatosplenomegaly Musculoskeletal: no cyanosis or clubbing, extremities motor strength 5/5 Skin: no rashes, warm and dry Neurologic: PERRL, EOMI, accommodation nl, no face palsy, no dysarthria Psychiatric: A+Ox3, euthymic affect Results & Data ([facility]) Vital Signs (Past 12 Hours) Vital Signs Temp Pulse Pulse Resp BP BP Pulse Ox 11/02/19 11:40 78 16 109/77 99 11/02/19 11:25 83 16 118/75 99 11/02/19 11:20 36.6 C 75 16 109/77 99 11/02/19 11:09 36.8 C 87 16 98/75 L 99 11/02/19 11:05 36.8 C 86 16 108/72 99 11/02/19 10:35 36.4 C L 89 18 120/79 99 11/02/19 10:30 36.4 C L 89 16 120/79 99 11/02/19 10:05 36.5 C 88 18 108/67 98 11/02/19 09:50 36.5 C 88 18 119/77 98 11/02/19 09:49 36.5 C 89 18 119/77 99 11/02/19 09:34 36.5 C 89 18 123/81 99 11/02/19 08:40 84 11/02/19 07:33 36.6 C 91 H 16 110/72 98 11/02/19 03:34 36.6 C 84 17 104/69 99 11/02/19 00:30 86
--- NOTE | 2019-11-02 15:57 | Ultrasound Report ---
BILATERAL LOWER EXTREMITY VENOUS DOPPLER HISTORY: Lower extremity pain. hx of lower ext DVT COMPARISON STUDY: None. FINDINGS: There is normal compressibility, flow, and augmentation within the bilateral lower extremit y deep venous systems. IMPRESSION: No DVT within the right or left lower extremity. ACT 112: Negative or not required by law. Electronically signed by: Rui Salgado M.D. 11/02/2019 3:56 PM
--- NOTE | 2019-11-02 15:58 | Ultrasound Report ---
US ankle/brachial index comp CLINICAL HISTORY: Peripheral vascular disease. COMPARISON STUDY: None. FINDINGS: The right ankle-brachial index measured with the posterior tibial artery and dorsalis pedis artery was 1.1 and the left ankle-brachial index measured with the posterior tibial artery was 1.1 a nd the dorsalis pedis artery was 1.0. IMPRESSION: Normal bilateral ankle brachial indices. ACT 112: Negative or not required by law. Electronically signed by: Rui Salgado M.D. 11/02/2019 3:57 PM
[2019-11-02] MEDS: PANTOprazole 40 MG TAB PO SCH (21:33)
[2019-11-03 05:49] LABS: Hematocrit (blood only) 26.2 % (42-52); Hemoglobin 8.7 g/dL (14.0-18.0)
--- NOTE | 2019-11-03 08:18 | Gastroenterology Progress Note ---
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 Please call with any questions or concerns Present on Admission?: Yes (2) Anemia: Present on Admission?: Yes Admission and Anticipated Discharge Date Admission Date: November 01, 2019 Supervising Physician Co-Signing Physician Notes Attending attestation I have seen, examined this patient, and agree with the findings and above by our mid-level provider ANDRES Fairbanks, with the following additions -No signs of bleeding, doing well -BID PPI for 2 months -Outpt colonoscopy regardless of stratification within 4 wks Subjective Pt was seen and evaluated, chart reviewed No acute events overnight Denies any abd pain No nausea, vomiting. S/P EGD w/ esophagitis, gastritis, duodenitis and nonbleeding duodenal ulcer No BM since EGD HGB stable Review of Systems Constitutional: no fever and no chills Respiratory: no cough and no dyspnea Cardiovascular: no chest pain and no dyspnea Gastrointestinal: no abdominal pain, no coffee ground emesis, no hematemesis, no blood in stools and no melena Physical Exam Constitutional: well nourished; no acute distress Neck: trachea midline Respiratory: normal respiratory effort Cardiovascular: Rate/Rhythm: regular rate and regular rhythm Gastrointestinal (Abdomen): Inspection/Auscultation: normal bowel sounds Percussion/Palpation: abdomen soft; abdomen nontender Skin: no rashes, warm and dry Results & Data ([facility]) Vital Signs (Past 12 Hours) Vital Signs Temp Pulse Resp BP Pulse Ox 11/03/19 06:46 36.6 C 82 18 109/71 98 11/02/19 23:06 36.4 C 76 16 102/64 97 Laboratory Results 11/03/19 11/02/19 11/02/19 Range/Units 05:25 08:25 05:51 Hgb 8.7 L (14.0-18.0) g/dL Hct 26.2 L (42-52) % PT 13.5 H (9.0-12.0) Seconds INR 1.3 H (0.9-1.1) Blood Type Blood Type Recheck A Positive Antibody Screen Crossmatch 11/01/19 Range/Units 14:38 Hgb (14.0-18.0) g/dL Hct (42-52) % PT (9.0-12.0) Seconds INR (0.9-1.1) Blood Type A Positive Blood Type Recheck Antibody Screen NEGATIVE Crossmatch See Detail (1) Anemia Anemia type: unspecified type Qualified Code(s): D64.9 - Anemia, unspecified
[2019-11-03] MEDS: PANTOprazole 40 MG TAB PO SCH (10:33)
--- NOTE | 2019-11-03 11:39 | Hospitalist Progress Note ---
Date of Service November 03, 2019 Assessment & Plan Admission and Anticipated Discharge Date Admission Date: November 01, 2019 Subjective Attending addendum: Discussed with GI, diet can be advanced to regular today, no further episode of GI bleed, no bowel movements H&H stays stable Patient can be discharged back to [facility]/present today Coumadin and Plavix discontinued: Lower extremity bilateral Doppler negative for DVT Lower extremity arterial ankle brachial index, no evidence of peripheral vascular disease He does not need to be on Coumadin or Plavix [facility] gastroenterology will schedule outpatient colonoscopy Results & Data ([facility]) Vital Signs (Past 12 Hours) Vital Signs Temp Pulse Resp BP Pulse Ox 11/03/19 06:46 36.6 C 82 18 109/71 98
--- NOTE | 2019-11-03 13:14 | Anesthesiology Progress Note ---
Date of Service November 03, 2019 Anesthesia Post Procedure Vital Signs Vital Signs: Temp Pulse Resp BP BP Pulse Ox 11/03/19 06:46 36.6 C 82 18 109/71 98 11/02/19 23:06 36.4 C 76 16 102/64 97 11/02/19 14:40 84 15 127/77 100 Notes Mental Status: alert / awake / arousable and participated in evaluation Nausea / Vomiting: adequately controlled Pain: adequately controlled Airway Patency, RR, SpO2: stable & adequate BP & HR: stable & adequate Hydration State: stable & adequate
--- NOTE | 2019-11-03 17:05 | Hospitalist Progress Note ---
Date of Service November 03, 2019 Assessment & Plan (1) Acute upper gastrointestinal bleeding: No further episode of GI bleeding since admission Patient admitted with complaints of multiple episodes of melanotic stool for last 2-3 days Patient found to be anemic, with hemoglobin drop noted from 107.9 No active GI bleed noted since admission, patient did not had any bowel movements Appreciate input from gastroenterology Status post EGD :Shows grade a reflux esophagitis, gastritis, duodenitis 1 nonbleeding duodenal ulcer with a clean ulcer base, As per gastroenterology: Patient will continue to take omeprazole 40 mg p.o. twice daily for 2 months Diet advanced to regular, tolerating well Attending addendum: Discussed with GI, diet can be advanced to regular today, no further episode of GI bleed, no bowel movements H&H stays stable Patient can be discharged back to [facility]/present today Coumadin and Plavix discontinued: Lower extremity bilateral Doppler negative for DVT Lower extremity arterial ankle brachial index, no evidence of peripheral vascular disease He does not need to be on Coumadin or Plavix [facility] gastroenterology will schedule outpatient colonoscopy Acute blood loss anemia: Due to above, Status post 1 unit of PRBC transfusion No evidence of active GI bleed since admission Hemoglobin stable at 8.7 today Aspirin /Plavix and Coumadin discontinued on discharge Repeat CBC in 1 week (2) Supratherapeutic INR: On admission INR> 9.7 Presented with melanotic stool Patient was given 10 mg of vitamin K 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 Postop course complicated by compartment syndrome, requiring fasciotomy, Current recommendation for lower extremity DVT single episode, anticoagulation for 3 months only Patient been on Coumadin therapy for more than 4.5 years Coumadin discontinued, does not need to chronic anticoagulation Extremity Doppler negative for DVT In any future episode of DVT, IVC filter can be considered (3) PAD (peripheral artery disease): Lower extremity ankle brachial index showed normal ratio, peripheral vascular disease, arterial stenosis less likely Aspirin and Plavix/dual antiplatelets discontinued, risk of bleeding much more higher than benefit CODE STATUS: Full code Disposition: Patient is discharged back to [facility] today Admission and Anticipated Discharge Date Admission Date: November 01, 2019 Subjective Patient denies of any abdominal pain, no nausea vomiting Tolerating regular diet well No bowel movement today Reports of small dark/black bowel movement yesterday after EGD procedure Denies of any complaint of dizzy spell or lightheadedness, no fever chills Dyspnea on exertion, Review of Systems Review of Systems: ROS per HPI, all other systems reviewed and negative Physical Exam Constitutional: WD/WN, vitals as above no acute distress Eyes: PERRL, conjunctivae normal, anicteric sclerae ENMT: external ear and nose normal, oropharynx normal Neck: trachea midline, no thyromegaly Respiratory: normal respiratory effort, lungs clear to auscultation Cardiovascular: RRR, no murmur, no edema Gastrointestinal (Abdomen): normal bowel sounds, soft, nontender, no hepatosplenomegaly Musculoskeletal: no cyanosis or clubbing, extremities motor strength 5/5 Skin: no rashes, warm and dry Neurologic: PERRL, EOMI, accommodation nl, no face palsy, no dysarthria Psychiatric: A+Ox3, euthymic affect Results & Data ([facility]) Vital Signs (Past 12 Hours) Vital Signs Temp Pulse Resp BP BP Pulse Ox 11/03/19 16:42 36.7 C 87 20 131/86 127/77 97 11/03/19 15:27 36.7 C 87 20 131/86 97 11/03/19 06:46 36.6 C 82 18 109/71 98
--- NOTE | 2019-11-03 17:06 | Discharge Summary ---
Date of Service November 03, 2019 Admission HPI Per Admitting Provider 54-year-old male who presents the ED for evaluation of abdominal pain and near syncope. Patient reports his symptoms began 3 days ago. Patient reports persistent right lower quadrant abdominal pain. He has been having dark tarry stools for the past 3 days as well. He has had nausea and poor appetite but denies vomiting. He reports lightheadedness and diaphoresis with standing. No syncopal event. Patient denies chest pain shortness of breath. No fevers or chills. He denies any urinary symptoms. Case was discussed with physician at [facility]. He reports that about 1 month ago, patient had been noncompliant with Coumadin however restarted about 2 weeks ago. INR on 10/18 was 2.2. Patient had arterial ultrasound on 08/27/2019 that showed moderate to high- grade stenosis. Also had venous Doppler that was negative. In the ED, rectal exam revealed heme positive stool. Hgb 10.3, INR > 9.7, BUN 45, creatinine 0.9. Patient has remained hemodynamically stable. He received IVF, IV vitamin K 10 mg, IV Protonix bolus followed by drip. Principal Diagnosis GI bleed/melena/acute blood loss anemia secondary to gastritis/duodenitis with duodenal ulcer/esophagitis Discharge Exam Constitutional WD/WN, vitals as above no acute distress Eyes PERRL, conjunctivae normal, anicteric sclerae ENMT external ear and nose normal, oropharynx normal Neck trachea midline, no thyromegaly Respiratory normal respiratory effort, lungs clear to auscultation Cardiovascular RRR, no murmur, no edema Gastrointestinal (Abdomen) normal bowel sounds, soft, nontender, no hepatosplenomegaly Musculoskeletal no cyanosis or clubbing, extremities motor strength 5/5 Skin no rashes, warm and dry Neurologic PERRL, EOMI, accommodation nl, no face palsy, no dysarthria Psychiatric A+Ox3, euthymic affect Discharge Data Allergies Allergy/AdvReac Type Severity Reaction Status Date / Time No Known Allergies Allergy Unverified 11/02/19 10:29 Consultations 11/01/19 16:14 ED Decision to Admit Stat 11/01/19 19:13 Consult Gastroenterology Routine Procedures Performed Operation Date: 11/02/19 16:50 Actual Procedures p EGD Biopsy Cytology - Madi Merrill Ordered Studies 11/01/19 14:32 CT abd pelvis IV con only Stat 11/02/19 12:26 US venous doppler LE BI Routine 11/02/19 12:48 US ankle/brachial index comp Routine Hospital Course (1) Acute upper gastrointestinal bleeding: No further episode of GI bleeding since admission Patient admitted with complaints of multiple episodes of melanotic stool for last 2-3 days Patient found to be anemic, with hemoglobin drop noted from 107.9 No active GI bleed noted since admission, patient did not had any bowel movements Appreciate input from gastroenterology Status post EGD :Shows grade a reflux esophagitis, gastritis, duodenitis 1 nonbleeding duodenal ulcer with a clean ulcer base, As per gastroenterology: Patient will continue to take omeprazole 40 mg p.o. twice daily for 2 months Diet advanced to regular, tolerating well Attending addendum: Discussed with GI, diet can be advanced to regular today, no further episode of GI bleed, no bowel movements H&H stays stable Patient can be discharged back to [facility]/present today Coumadin and Plavix discontinued: Lower extremity bilateral Doppler negative for DVT Lower extremity arterial ankle brachial index, no evidence of peripheral vascular disease He does not need to be on Coumadin or Plavix 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 Postop course complicated by compartment syndrome, requiring fasciotomy, Current recommendation for lower extremity DVT single episode, anticoagulation for 3 months only Patient been on Coumadin therapy for more than 4.5 years Coumadin discontinued, does not need to chronic anticoagulation Extremity Doppler negative for DVT In any future episode of DVT, IVC filter can be considered (3) PAD (peripheral artery disease): Lower extremity ankle brachial index showed normal ratio, peripheral vascular disease, arterial stenosis less likely Aspirin and Plavix/dual antiplatelets discontinued, risk of bleeding much more higher than benefit CODE STATUS: Full code Disposition: Patient is discharged back to [facility] today Total Time Total Time Spent Total Time Spent (In Minutes): Approximately 40 minutes Total Time Includes: Examination of the Patient, Discharge Planning, Medication Reconciliation and Communication With Other Providers Discharge Plan Discharge Items [facility]position[facility] Reason For Visit: GI BLEED Discharge Diagnosis: GI bleed/melena/acute blood loss anemia secondary to gastritis/duodenitis with duodenal ulcer/esophagitis Activity: Resume your previous activity Non-emergency contact: Primary Care Provider Call non-emergency contact if: you have any medication questions [facility] - Diet: Regular Ambulatory Orders: Complete Blood Count no Diff (Routine) Timeframe: 1 Week Location: Determined by Patient Ordered By: Kelly Gipson Attending Provider Instructions: DO NOT TAKE COUMADIN -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 gastroenterology clinic will contact for scheduling Pending Studies at Discharge: Yes Studies:: Lab: Complete blood count in 1 week Stand-Alone Forms: My [facility] Skilled Items Patient informed of condition?: Yes Discharge Level of Care: Other Communicable Disease: No Discharge Prognosis: Stable Lines: None Urinary Catheter: No Medications and DC Order Prescriptions: New pantoprazole [Protonix] 40 mg tablet,delayed release (DR/EC) 40 mg PO BID 60 Days Qty: 120 RF: 0 Continued atorvastatin 80 mg Tablet 80 mg PO HS RF: 0 fluticasone propionate [Flonase Allergy Relief] 50 mcg/actuation [place],Suspension 2 spray INTRANASAL DAILY RF: 0 Discontinued ASPIRIN (ASPIRIN EC) 81 MG tablet 81 mg PO DAILY Qty: 0 RF: 0 clopidogrel [Plavix] 75 mg Tablet 75 mg PO DAILY RF: 0 warfarin 4 mg Tablet 4 mg PO HS RF: 0 warfarin 5 mg Tablet 5 mg PO HS RF: 0 Discharge Orders: Discharge Order (Routine); Ordered 11/03/19 Ordered By: Kelly Blank Admission Data Admit Date/Time: 11/01/19 16:20 Attending Provider: Abhay,Kelly H. Admit Provider: Alexander Kirk Primary Care Provider: Didier HUNG Other Providers: Alexander Kirk ; Madi Merrill Other Interventions: Discharge Summary Assessment (RN) Last Done: 11/03/19 16:42
== END 2019-11-03 18:45 | DRG 378 ==
LOC: ED 14:23 → SUATTDRO 16:20 → 2E 16:20 → MERGE 16:20 → 2E 18:32 → 2S 23:23 → 3W 11-02 14:36